=== PATIENT | female | born 1970 | race Caucasian/White ===

== ENCOUNTER 2017-10-20 22:21 | Emergency (ER) | payer OTHER ==
[~2017-10-20] VITALS: Ht 175.3 cm; Wt 83.9 kg
[2017-10-20 22:25] VITALS: Ht 175.3 cm; Wt 83.9 kg
[2017-10-21 00:52] VITALS: BP 134/93
== END 2017-10-21 00:52 | disposition home or self-care (01) ==
LOC: ED 22:21
DX: N39.0 Urinary tract infection, site not specified (principal)

== ENCOUNTER 2018-08-03 23:35 | Emergency (ER) | payer OTHER ==
[~2018-08-03] VITALS: Ht 175.3 cm; Wt 61.2 kg
[2018-08-03 23:40] VITALS: Ht 175.3 cm; Wt 61.2 kg
[2018-08-04 00:15] LABS: PLATELET COUNT 318 x10^3mcL (130-400)
[2018-08-04 00:17] LABS: BASOPHIL % 2.1 % (0-2)
[2018-08-04 00:18] LABS: RED CELL DISTRIBUTION WIDTH 22.8 % (11.5-14.5)
[2018-08-04 00:37] LABS: rbc morphology (normal/abnorm) ABNORMAL (NORMAL)
[2018-08-04 01:08] LABS: CALCIUM 9.4 mg/dL (8.5-10.1); CARBON DIOXIDE 23.6 mmol/L (21-32); CHLORIDE SERUM 104 mmol/L (98-107); CREATININE SERUM 0.8 mg/dL (0.6-1.0); GFR1 > 60 mL/min; GLUCOSE SERUM 118 mg/dL (74-106); POTASSIUM SERUM 3.5 mmol/L (3.5-5.1); SODIUM SERUM 140 mmol/L (136-145)
[2018-08-04 01:09] LABS: ALBUMIN 3.8 g/dL (3.4-5.0); ALKALINE PHOSPHATASE 111 U/L (46-116); ALT/SGPT 14 U/L (14-59); AST/SGOT 18 U/L (15-37); BILIRUBIN TOTAL 0.2 mg/dL (0.20-1.00); TOTAL PROTEIN, SERUM 8.2 g/dL (6.4-8.2)
[2018-08-04 02:30] VITALS: BP 129/76
== END 2018-08-04 02:30 | disposition home or self-care (01) ==
LOC: ED 23:35
PROVIDERS: Emergency Medicine
DX: R42 Dizziness and giddiness (principal)
CPT/HCPCS: J0780; J8597